=== PATIENT | male | born 1945 | race Caucasian/White ===

== ENCOUNTER 2021-03-04 16:00 | Outpatient (CLI) | payer MEDICARE ==
[2014-06-13 14:26] VITALS: BMI 29.2
[~2021-03-04 16:00] MED LIST: AMBIEN5 MG PO; ANTIVERT25 MG PO; ATIVAN0.5 MG PO; CARAFATE1 G PO; FLOMAX0.4 MG PO; GABAPENTIN100 MG PO; LEVAQUIN500 MG PO; LISINOPRIL10 MG PO; NORCO 7.5/325 T1 TA1 PO; PROMETHAZINE W473 M1 PO; PROTONIX40 MG PO; TESSALON PERLE100 MG PO
== END 2021-03-04 23:59 | disposition home or self-care (01) ==
LOC: D.MAMMO 16:00
PROVIDERS: ATTEND Emergency Medicine
DX: N63.20 Unspecified lump in the left breast, unspecified quadrant (principal); N62 Hypertrophy of breast